=== PATIENT | female | born 1950 | race Caucasian/White ===

== ENCOUNTER → 2024-02-01 08:35 | Outpatient (REF) | payer MEDICARE, OTHER, SELFPAY ==
[2024-02-01 09:50] LABS: % Basophils 1.3 % (0-2); % Eosinophils 6.4 % (0-6); % Immature Granulocytes 0.3 % (0-0.5); % Lymphocytes 30.6 % (20.5-51.1); % Monocytes 9.5 % (1.7-9.3); % Neutrophils 51.9 % (42.2-75.2); Absolute Basophils 0.1 10^3/uL (0-0.2); Absolute Eosinophils 0.4 10^3/uL (0-0.7); Absolute Lymphocytes 1.9 10^3/uL (1.2-3.4); Absolute Monocytes 0.6 10^3/uL (0.1-0.6); Absolute Neutrophils 3.2 10^3/uL (1.4-6.5); Hematocrit 43.3 % (37.0-47.0); Hemoglobin 15.6 g/dL (12.0-16.0); Mean Corpuscular Hgb 31.1 pg (27.0-31.0); Mean Corpuscular Volume 86.4 fL (81.0-99.0); Mean Platelet Volume 11.5 fL (7.4-10.4); Nucleated Red Blood Cells % 0 %; Platelet Count 233 10^3/uL (130-400); Red Blood Cell Count 5.01 10^6/uL (4.20-5.40); Red Cell Dist. Width 12.5 % (11.5-14.5); White Blood Cell Count 6.1 10^3/uL (4.8-10.8)
[2024-02-01 11:19] LABS: ALT (SGPT) 16 U/L (0-35); AST (SGOT) 27 U/L (14-36); Albumin 4.6 g/dl (3.5-5.0); Alkaline Phosphatase 63 U/L (38-126); Blood Urea Nitrogen 15 mg/dl (7-17); Calcium 9.9 mg/dl (8.4-10.2); Carbon Dioxide 25 mmol/L (22-30); Chloride 103 mmol/L (98-107); Glucose 86 mg/dl (70-99); HDL Cholesterol 57 mg/dl; LDL Cholesterol, Calculated 113 mg/dl; Potassium 4.9 mmol/L (3.5-5.1); Sodium 139 mmol/L (135-145); Total Bilirubin 0.7 mg/dl (0.2-1.3); Total Cholesterol 187 mg/dl (50-199); Total Protein 7.2 g/dl (6.3-8.2); Triglyceride 85 mg/dl (10-149); Very Low Density Lipoprotein 17 mg/dl (0-30); eGFR > 60.00
[2024-02-01 11:51] LABS: TSH Reflex To Free T4 2.89 uIU/ml (0.47-4.68)
== END ==
LOC: REG 08:35
PROVIDERS: ATTENDING PHYSICIAN Family Medicine
DX: I48.0 Paroxysmal atrial fibrillation (principal); E87.1 Hypo-osmolality and hyponatremia; K21.9 Gastro-esophageal reflux disease without esophagitis; I10 Essential (primary) hypertension; R55 Syncope and collapse
CPT/HCPCS: 36415; 80053; 80061; 84443; 85025

== ENCOUNTER → 2024-07-11 10:43 | Outpatient (REF) | payer MEDICARE, OTHER, SELFPAY | LOC: WDC 10:43 | PROVIDERS: ATTENDING PHYSICIAN Family Medicine | DX: Z12.31 Encounter for screening mammogram for malignant neoplasm of breast (principal) | CPT/HCPCS: 77063; 77067 ==

== ENCOUNTER 2024-09-24 20:17 | Emergency (ER) | payer MEDICARE, OTHER, SELFPAY ==
[2024-09-24 20:25] VITALS: BP 164/80
[2024-09-24 20:45] LABS: % Basophils 0.9 % (0-2); % Eosinophils 4.3 % (0-6); % Immature Granulocytes 0.4 % (0-0.5); % Lymphocytes 33.1 % (20.5-51.1); % Monocytes 8.7 % (1.7-9.3); % Neutrophils 52.6 % (42.2-75.2); Absolute Basophils 0.1 10^3/uL (0-0.2); Absolute Eosinophils 0.3 10^3/uL (0-0.7); Absolute Lymphocytes 2.6 10^3/uL (1.2-3.4); Absolute Monocytes 0.7 10^3/uL (0.1-0.6); Absolute Neutrophils 4.2 10^3/uL (1.4-6.5); Hematocrit 42.2 % (37.0-47.0); Hemoglobin 14.8 g/dL (12.0-16.0); Mean Corp Hgb Conc. 35.1 g/dL (33.0-37.0); Mean Corpuscular Hgb 30.3 pg (27.0-31.0); Mean Corpuscular Volume 86.5 fL (81.0-99.0); Mean Platelet Volume 10.3 fL (7.4-10.4); Nucleated Red Blood Cells % 0 %; Platelet Count 271 10^3/uL (130-400); Red Blood Cell Count 4.88 10^6/uL (4.20-5.40); Red Cell Dist. Width 12.6 % (11.5-14.5)
[2024-09-24 20:59] VITALS: BMI 24.3
[2024-09-24 20:59] LABS: ALT (SGPT) 23 U/L (0-35); AST (SGOT) 28 U/L (14-36); Albumin 4.6 g/dl (3.5-5.0); Alkaline Phosphatase 48 U/L (38-126); Blood Urea Nitrogen 16 mg/dl (7-17); Calcium 9.3 mg/dl (8.4-10.2); Carbon Dioxide 26 mmol/L (22-30); Chloride 100 mmol/L (98-107); Glucose 123 mg/dl (70-99); Potassium 4.3 mmol/L (3.5-5.1); Sodium 137 mmol/L (135-145); Total Bilirubin 0.2 mg/dl (0.2-1.3); eGFR > 60.00
--- NOTE | 2024-09-24 20:59 | ED.GENMED ---
History of Present Illness
General
Chief Complaint: Chest Pain
Source: patient
Exam Limitations: none
Time Seen by Provider: 09/24/24 20:40
History of Present Illness
History of Present Illness:
This is a 74 year old female that comes in with c/o chest pain. 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 State that she got this pressure in her chest all of a sudden. States that she felt SOB and she felt like
she was going to pass out. States that it was not a pain. States that it was a tightness. States that this lasted less then 10 min. Denies any discomfort at this time. Denies any fever, chills, abd pain, nausea, vomiting, diarrhea, headache,
dizziness, urinary burning.
Past History
Past History
ED Past Medical History: Arrthythmia (Atrial fib), GERD and Other (Near syncope, syncope, PNA, )
ED Past Surgical History: Cardiac (Pacemaker) and Cholecystectomy
Social History
Tobacco: Non-smoker
Alcohol: Occasional
Personal:
Living: alone
Review of Systems
Review of Systems
All Other Systems: ROS reviewed and negative except as documented in HPI and ROS
Constitutional: Reports no symptoms; Denies fever or chills
EENT: Reports no symptoms
Respiratory: Reports trouble breathing; Denies cough
Cardiac: Reports chest pain
ABD/GI: Reports no symptoms; Denies abdominal pain, nausea, vomiting or diarrhea
: Denies dysuria, frequency or urgency
Musculoskeletal: Reports no symptoms
Skin: Reports no symptoms
Neurological: Reports no symptoms; Denies dizzy or headache
Psychiatric: Reports no symptoms
Phy Exam
General Physical Exam
General Presentation: well appearing and no apparent distress
General age: appears stated age
General Skin: warm and dry
General Habitus: elderly
General Mental: alert and anxious
General Hydration: appears well hydrated
ENT Exam
ENT Exam: TM's normal, pharynx normal and neck supple
Eye Exam
Eye Exam: EOMI
Cardiovascular Exam
Cardiovascular Exam: regular rate/rhythm, no edema, no murmur and normal peripheral pulses
Pulmonary Exam
Pulmonary Exam: lungs clear, no respiratory distress, no rales, chest non tender, no crackles, no rhonchi, no wheezing and no cough
Gastrointestinal Exam
Gastrointestinal Exam: normal bowel sounds, non tender, soft, no organomegaly, no pulsatile mass and non distended
Musculoskeletal Exam
Musculoskeletal Exam: full ROM and no edema
Skin Exam
Skin Exam: normal color, warm/dry, no rash and no petechia
Psychiatric Exam
Psychiatric Exam: normal mood/affect
Scores
Heart Score for Chest Pain Patients
STEMI patient?: No
History: Slightly or Non-Suspicious
ECG: Normal
Age: >/= 65 years
Risk Factors: 1 or 2 Risk Factors
Troponin: </= Normal Limit
Heart Score for Chest Pain Patients: 3
Heart Score Risk: 2.5% MACE over next 6 weeks
Course
Orders/Labs/Results
Orders:
Orders
09/24/24 20:18
ECG [Electrocardiogram (*1)] Urgent
Reason for Study: Chest Pain
EKG- Treatment ONCE
09/24/24 20:33
Cardiac Monitoring- Treatment ONCE
IV Insert/Care/Rem.- Treatment PRN
CR Chest - 2 Views Urgent
Comment:
Reason For Exam: respiratory distress
O2 Therapy [RESP] Urgent
Titrate/Wean O2 to maintain O2 sat greater than (%): 93
Special Instructions: TO MAINTAIN CONTINUOUS O2 SATS >/= 93%
Pulse Ox/cont/shift [RESP] Urgent
Quantity: 1
Special Instructions: continuous pulse ox
09/24/24 20:38
Complete Blood Count/With Diff Urgent
Comprehensive Metabolic Panel Urgent
NT-proBNP Urgent
Troponin I Urgent
09/24/24 21:04
Pantoprazole [Protonix IV] 40 mg IV NOW STA
09/24/24 23:20
EKG- Treatment ONCE
09/24/24 23:30
Electrocardiogram (*1) Urgent
Reason for Study: Chest Pain
Other Reason for Exam: repeat
09/24/24 23:44
Troponin I Urgent
Abnormal Lab Results
09/24/24
20:38
Absolute Monos (auto) 0.7 H 10^3/uL
(0.1-0.6)
Glucose 123 H mg/dl
(70-99)
09/24/24 20:38
09/24/24 20:38
glucose nonfasting. Troponin <0.012, Pro-BNP 37.1
Troponin <0.012
Vital Signs
Initial and Last Documented VS:
Initial Vital Signs
Temp Pulse Resp BP Pulse Ox
97.9 F 100 24 164/80 100
09/24/24 20:25 09/24/24 20:25 09/24/24 20:25 09/24/24 20:25 09/24/24 20:25
Last Documented Vital Signs
Temp Pulse Resp BP Pulse Ox
97.9 F 90 14 143/67 97
09/24/24 20:25 09/25/24 00:17 09/25/24 00:17 09/25/24 00:00 09/25/24 00:17
MDM/Problems Addressed
Differential Diagnosis Includes:
coronary syndrome. GERD
MDM/Problems Addressed:
This is a 74 year old female that comes in with c/o chest discomfort that only lasted less then 10 min. states that it was a tightness.
Will check labs, Chest x-ray and ECG.
repeat ECG: rate 83, NSR, Normal axis. Normal QRS, Negative for ischemia.
Back into see patient. Explained that her Troponin was also negative. Chest X-ray is normal. This may have been due to Reflux or a gas bubble that caused this fleeting pain. Patient to follow up with the Family doctor an call her supervisor whipped topping for
further evaluation. Patient to return with increased or changing pain, or any other concerns.
Chronic conditions affecting care:
NA
Acute Exacerbation and/or Progression of Chronic Illness:
NA
*Radiology
Radiology exam reviewed: radiology read reviewed (Chest-No acute cardiopulmonary process. )
*Pulse Oximetry
Patient hypoxic: no
*EKG
Interpreted by ED Provider?: Yes
Heart Rate: 97
Rate: normal
Rhythm: sinus
[place]: normal axis
Interval: normal interval
QRS Pattern: normal QRS
Ischemia: no ischemia
*Manager Payer Interpretation
Rate: normal
Heart Rate: 91
Rhythm: sinus
*Critical Care Note
Total Time (30-74mins, 75-104mins- exclusive of procedures): Not Applicable
ED Attending Note
-
Portions of this chart may have been created with voice recognition software.� Occasional wrong word or��sound alike� substitutions may have occurred due to the inherent limitations of voice recognition software.
Discharge Plan
Departure
Patient Disposition: Home (Routine Discharge)
Date of Disposition: 09/25/24
Time of Disposition: 00:50
Patient with high blood pressure during this ER visit?: Yes
Condition: Good
Covid-19: Not Applicable
Discharge Problem:
Chest pain
Instructions: Chest Pain PCP Follow Up, BLOOD PRESSURE
Prescriptions:
No Action
inulin-chromium picolinate [Fiber Select Gummies] 1 EACH tablet,chewable
2 tab PO DAILY
multivitamin 1 EACH tablet
1 ea PO BID
ascorbic acid (vitamin C) [Vitamin C] 500 MG tablet
1,000 mg PO QPM
esomeprazole magnesium [Nexium] 20 MG capsule,delayed release(DR/EC)
20 mg PO DAILY
calcium-vitamin D3-vitamin K [Citracal-D3 Soft Chew] 1 EACH tablet,chewable
2 ea PO BID
Osteo Bi-Flex + Vitamin D
1 tab PO BID
cephalexin 500 MG capsule
500 mg PO Q8H Qty: 3 0RF
Rx Instructions:
First dose due at 2pm today
apixaban [Eliquis] 5 MG tablet
5 mg PO BID Qty: 1 0RF
Rx Instructions:
Start Weds 3/10 in PM
Referrals:
Haleigh Hedrick MD [Family Provider] - Follow up in 2-3 days
Activity Restrictions/Additional Instructions:
As discussed, your blood work is normal along with Both Troponin. Your chest x-ray is normal. Please follow up with your family doctor and call your Assembler Truck Trailer for further evaluation. IF YOU HAVE INCREASED OR CHANGING PAIN OR YOU HAVE ANY OTHER
CONCERNS PLEASE RETURN TO THE EMERGENCY ROOM.
Interventions
Interventions:
*Risk Screen - Suicide Last Done: 09/24/24 20:25
*General Assessment Last Done: 09/24/24 20:25
*Neglect/Abuse Screening Last Done: 09/24/24 20:25
ED- Fall Risk Assessment Last Done: 09/24/24 20:25
*ED COVID-19 Vaccine History Last Done: 09/24/24 20:25
ED- Cardiac Assessment Last Done: 09/24/24 21:00
Discharge Date and Time
Print Language: CENTRAL AFRICAN
[2024-09-24 21:01] VITALS: BP 142/55
[2024-09-24] MEDS: PROTONIX IV 40 MG IV (21:09)
[2024-09-24 21:11] LABS: NT-proBNP 37.1 pg/ml; Troponin I < 0.012 ng/ml
[2024-09-24 23:14] VITALS: BP 147/61
[2024-09-25] VITALS: BP 143/67
[2024-09-25 00:31] LABS: Troponin I < 0.012 ng/ml
[2024-09-25 00:55] VITALS: BP 157/68
[2024-09-25 01:00] VITALS: BP 157/68
== END 2024-09-25 01:00 | disposition home or self-care (01) ==
LOC: EMR 20:17
PROVIDERS: Clinical Nurse Specialist Family Health; Emergency Medicine; EMERGENCY PHYSICIAN Student in an Organized Health Care Education/Training Program; FAMILY PHYSICIAN Family Medicine
DX: R07.89 Other chest pain (principal); I48.91 Unspecified atrial fibrillation; K21.9 Gastro-esophageal reflux disease without esophagitis; Z90.49 Acquired absence of other specified parts of digestive tract; Z95.0 Presence of cardiac pacemaker
CPT/HCPCS: 99283; 96374; 71046; 80053; 83880; 84484; 85025; 93005

== ENCOUNTER → 2024-10-03 10:52 | Outpatient (REF) | payer MEDICARE, OTHER, SELFPAY | LOC: DHCBC/DCA 10:52 | PROVIDERS: ATTENDING PHYSICIAN Internal Medicine Cardiovascular Disease; FAMILY PHYSICIAN Family Medicine | DX: R07.89 Other chest pain (principal); R06.02 Shortness of breath; I48.0 Paroxysmal atrial fibrillation; R00.1 Bradycardia, unspecified | CPT/HCPCS: 78452; 93017; A9500; J2785 ==

== ENCOUNTER → 2025-01-30 08:58 | Outpatient (REF) | payer MEDICARE, OTHER, SELFPAY ==
[2025-01-30 09:36] LABS: % Basophils 0.9 % (0-2); % Eosinophils 3.4 % (0-6); % Immature Granulocytes 0.2 % (0-0.5); % Lymphocytes 29.5 % (20.5-51.1); % Monocytes 8.6 % (1.7-9.3); % Neutrophils 57.4 % (42.2-75.2); Absolute Basophils 0.1 10^3/uL (0-0.2); Absolute Eosinophils 0.2 10^3/uL (0-0.7); Absolute Lymphocytes 1.7 10^3/uL (1.2-3.4); Absolute Monocytes 0.5 10^3/uL (0.1-0.6); Absolute Neutrophils 3.2 10^3/uL (1.4-6.5); Hematocrit 46.3 % (37.0-47.0); Hemoglobin 16.6 g/dL (12.0-16.0); Mean Corp Hgb Conc. 35.9 g/dL (33.0-37.0); Mean Corpuscular Hgb 31.3 pg (27.0-31.0); Mean Corpuscular Volume 87.2 fL (81.0-99.0); Mean Platelet Volume 11.2 fL (7.4-10.4); Nucleated Red Blood Cells % 0 %; Platelet Count 238 10^3/uL (130-400); Red Blood Cell Count 5.31 10^6/uL (4.20-5.40); Red Cell Dist. Width 12.4 % (11.5-14.5); White Blood Cell Count 5.6 10^3/uL (4.8-10.8)
[2025-01-30 10:12] LABS: ALT (SGPT) 19 U/L (0-35); AST (SGOT) 25 U/L (14-36); Albumin 4.7 g/dl (3.5-5.0); Alkaline Phosphatase 61 U/L (38-126); Blood Urea Nitrogen 14 mg/dl (7-17); Calcium 10.2 mg/dl (8.4-10.2); Carbon Dioxide 28 mmol/L (22-30); Chloride 102 mmol/L (98-107); Glucose 95 mg/dl (70-99); HDL Cholesterol 60 mg/dl; LDL Cholesterol, Calculated 128 mg/dl; Potassium 4.3 mmol/L (3.5-5.1); Sodium 141 mmol/L (135-145); Total Bilirubin 0.7 mg/dl (0.2-1.3); Total Cholesterol 203 mg/dl (50-199); Total Protein 7.7 g/dl (6.3-8.2); Triglyceride 79 mg/dl (10-149); Very Low Density Lipoprotein 15 mg/dl (0-30); eGFR > 60.00
[2025-01-30 10:37] LABS: TSH Reflex To Free T4 2.82 uIU/ml (0.47-4.68)
== END ==
LOC: REG 08:58
PROVIDERS: ATTENDING PHYSICIAN Family Medicine
DX: R00.1 Bradycardia, unspecified (principal); I48.0 Paroxysmal atrial fibrillation; E78.1 Pure hyperglyceridemia; I10 Essential (primary) hypertension; E87.1 Hypo-osmolality and hyponatremia
CPT/HCPCS: 36415; 80053; 80061; 84443; 85025

== ENCOUNTER 2025-03-03 14:46 | Emergency (ER) | payer MEDICARE, OTHER, SELFPAY ==
[2025-03-03] VITALS (7 sets, daily range): BP systolic 126–190; BP diastolic 56–101
[2025-03-03 15:20] LABS: % Basophils 0.5 % (0-2); % Eosinophils 0.6 % (0-6); % Immature Granulocytes 0.2 % (0-0.5); % Lymphocytes 14.1 % (20.5-51.1); % Monocytes 7.6 % (1.7-9.3); Absolute Basophils 0.1 10^3/uL (0-0.2); Absolute Eosinophils 0.1 10^3/uL (0-0.7); Absolute Lymphocytes 1.3 10^3/uL (1.2-3.4); Absolute Monocytes 0.7 10^3/uL (0.1-0.6); Absolute Neutrophils 7.2 10^3/uL (1.4-6.5); Hematocrit 42.7 % (37.0-47.0); Hemoglobin 15.5 g/dL (12.0-16.0); Mean Corp Hgb Conc. 36.3 g/dL (33.0-37.0); Mean Corpuscular Hgb 31.4 pg (27.0-31.0); Mean Corpuscular Volume 86.4 fL (81.0-99.0); Mean Platelet Volume 11.3 fL (7.4-10.4); Nucleated Red Blood Cells % 0 %; Platelet Count 248 10^3/uL (130-400); Red Blood Cell Count 4.94 10^6/uL (4.20-5.40); Red Cell Dist. Width 12.3 % (11.5-14.5); White Blood Cell Count 9.3 10^3/uL (4.8-10.8)
[2025-03-03 15:37] LABS: ALT (SGPT) 16 U/L (0-35); AST (SGOT) 21 U/L (14-36); Albumin 4.7 g/dl (3.5-5.0); Alkaline Phosphatase 67 U/L (38-126); Blood Urea Nitrogen 12 mg/dl (7-17); Carbon Dioxide 25 mmol/L (22-30); Chloride 107 mmol/L (98-107); Glucose 114 mg/dl (70-99); Sodium 140 mmol/L (135-145); Total Bilirubin 0.5 mg/dl (0.2-1.3); Total Protein 7.5 g/dl (6.3-8.2); eGFR > 60.00
[2025-03-03 15:43] LABS: Troponin I < 0.012 ng/ml
--- NOTE | 2025-03-03 15:58 | ED.GENMED ---
History of Present Illness
General
Chief Complaint: Chest Pain
Source: patient
Exam Limitations: none
Time Seen by Provider: 03/03/25 15:45
History of Present Illness
History of Present Illness:
See MDM
Past History
Past History
ED Past Medical History: Arrthythmia (Atrial fib), GERD and Other (Near syncope, syncope, PNA, )
ED Past Surgical History: Cardiac (Pacemaker) and Cholecystectomy
Social History
Tobacco: Non-smoker
Alcohol: Occasional
Personal:
Living: alone
Phy Exam
Physical Exam
Physical Exam:
See MDM
Scores
Heart Score for Chest Pain Patients
STEMI patient?: No
History: Slightly or Non-Suspicious
ECG: Nonspecific Repolarization
Age: >/= 65 years
Risk Factors: 1 or 2 Risk Factors
Troponin: </= Normal Limit
Heart Score for Chest Pain Patients: 4
Heart Score Risk: 20.3% MACE over next 6 weeks
Course
Orders/Labs/Results
Orders:
Orders
03/03/25 14:47
EKG [Electrocardiogram (*1)] Urgent
Reason for Study: Chest Pain
EKG- Treatment ONCE
03/03/25 14:57
Cardiac Monitoring- Treatment ONCE
IV Insert/Care/Rem.- Treatment PRN
O2 Therapy [RESP] Urgent
Titrate/Wean O2 to maintain O2 sat greater than (%): 90
Special Instructions: Maintain sats >/=90%
Pulse Ox/spot Check [RESP] Urgent
Quantity: 1
Special Instructions: ON ROOM AIR
03/03/25 15:10
Complete Blood Count/With Diff Urgent
Comprehensive Metabolic Panel Urgent
Troponin I Urgent
03/03/25 15:56
0.9% Sodium Chloride 1000 ml [Nss] 1,000 ml IV BOLUS
Diltiazem HCl [Cardizem] 20 mg IV NOW STA
CR Chest Portable - 1 View Urgent
Comment:
Reason For Exam: central chest pain
Reason Study Needs to be Portable: Patient Unstable
03/03/25 17:27
Propofol [Diprivan] 20 ml .ROUTE .STK-MED
03/03/25 17:41
Electrocardiogram (*1) Urgent
Reason for Study: Other
Other Reason for Exam: rhythm change
EKG- Treatment ONCE
Abnormal Lab Results
03/03/25
15:10
MCH 31.4 H pg
(27.0-31.0)
MPV 11.3 H fL
(7.4-10.4)
Absolute Neuts (auto) 7.2 H 10^3/uL
(1.4-6.5)
Absolute Monos (auto) 0.7 H 10^3/uL
(0.1-0.6)
Neutrophils % 77.0 H %
(42.2-75.2)
Lymphocytes % 14.1 L %
(20.5-51.1)
Glucose 114 H mg/dl
(70-99)
03/03/25 15:10
03/03/25 15:10
Vital Signs
Initial and Last Documented VS:
Initial Vital Signs
Temp Pulse Resp BP Pulse Ox
97.9 F 125 22 190/101 99
03/03/25 14:53 03/03/25 14:53 03/03/25 14:53 03/03/25 14:53 03/03/25 14:53
Last Documented Vital Signs
Temp Pulse Resp BP Pulse Ox
97.9 F 84 19 126/66 98
03/03/25 14:53 03/03/25 17:45 03/03/25 17:45 03/03/25 17:40 03/03/25 17:45
MDM/Problems Addressed
Differential Diagnosis Includes:
HPI and MDM Narrative:
74-year-old female presenting for evaluation of central chest discomfort. Patient has history of poorly controlled osteoporosis. Patient has developed random rib fractures in the past because of this. Patient states this feels like another rib
fracture. However, patient with RVR. Patient does have a history of A-fib and claims compliance with Eliquis. She states that she has never been in A-fib for this long.
Blood work was done prior to my assessment showing no clinically significant abnormalities.
Will give dose of IV Cardizem and attempt to chemically cardiovert. If unsuccessful, will consider synchronized cardioversion
Physical exam
General: Well appearing and non-toxic
HEENT: protecting airway
Neck: appears supple
CV: No evidence of cyanosis. Tachycardic and irregular
Resp: No accessory muscle use
Abd: Non-distended
Extremities: No deformities
Neuro: alert
Psych: Mildly anxious
Skin: Intact
Problems Addressed including Acute and Chronic Conditions affecting care:
1. A-fib with RVR
Acuity: acute
Prognosis: stable
Details: Will give IV Cardizem attempt to chemically cardiovert
2. Chest pain
Acuity: acute
Prognosis: stable
Details: Likely in the setting of A-fib. Troponin negative. Will obtain chest x-ray given prior history of rib fractures
Updates
IV Cardizem seem to work but patient was going back to the 120s in A-fib. At that point, patient signed consent for sedation and cardioversion. Just before moderate sedation was started, patient broke to sinus rhythm. Comfortable going home.
Discussed following up with cardiology
Differential Diagnosis (but not limited to): A-fib, ACS, rib fractures
Testing considered: D-dimer but she is anticoagulated
Drug therapy (if applicable): OTC meds, please see d/c instruction regarding Rx drugs
Amount and/or Complexity of Data Reviewed
Clinical info obtained from: Patient
External data reviewed: N/A
Labs I independently reviewed (but not limited to): Troponin negative
Radiology: X-ray independently reviewed: Chest x-ray negative for widened mediastinum or rib fractures
Pulse Ox: not hypoxic
EKG independently reviewed: A-fib with RVR, normal axis, no STEMI
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
Critical Care: The high probability of a clinically significant, sudden or life threatening deterioration of the cardiovascular system(s) required my full and direct attention, intervention and personal management. The aggregate critical care time
was 33 minutes. This time is in addition to time spent performing reported procedures but includes the following:
[x] Data Review and interpretation
[x] Patient assessment and monitoring of vital signs
[x] Documentation
[x] Medication orders and management
Risk of Complication:
Social Determinants of health: Good social support
Discussed with other providers: N/A
Escalation of Care includes Admit/Obs: After being observed in the Emergency Department, pt stable for discharge.
Occasional wrong word or 'sound a like' substitutions may have occurred due to the inherent limitations of voice recognition software. Read the chart carefully and recognize, using context, where substitutions have occurred.
*Critical Care Note
Total Time (30-74mins, 75-104mins- exclusive of procedures): 33 min
ED Attending Note
-
Portions of this chart may have been created with voice recognition software.� Occasional wrong word or��sound alike� substitutions may have occurred due to the inherent limitations of voice recognition software.
Discharge Plan
Departure
Patient Disposition: Home (Routine Discharge)
Date of Disposition: 03/03/25
Time of Disposition: 18:01
Patient with high blood pressure during this ER visit?: No
Discharge Problem:
A-fib
Prescriptions:
No Action
inulin-chromium picolinate [Fiber Select Gummies] 1 EACH tablet,chewable
2 tab PO DAILY
multivitamin 1 EACH tablet
1 ea PO BID
ascorbic acid (vitamin C) [Vitamin C] 500 MG tablet
1,000 mg PO QPM
esomeprazole magnesium [Nexium] 20 MG capsule,delayed release(DR/EC)
20 mg PO DAILY
calcium-vitamin D3-vitamin K [Citracal-D3 Soft Chew] 1 EACH tablet,chewable
2 ea PO BID
Osteo Bi-Flex + Vitamin D
1 tab PO BID
cephalexin 500 MG capsule
500 mg PO Q8H Qty: 3 0RF
Rx Instructions:
First dose due at 2pm today
apixaban [Eliquis] 5 MG tablet
5 mg PO BID Qty: 1 0RF
Rx Instructions:
Start Weds 3/10 in PM
Referrals:
Haleigh Hedrick MD [Family Provider, Family Practice]
Activity Restrictions/Additional Instructions:
Please return for any worsening symptoms.
You may return at any time if you have further concerns.
Please follow up with your sorority mother at the first available appointment. I am worried that your A-fib is starting to worsen.
Thank you for choosing [facility].
Interventions
Interventions:
*General Assessment Last Done: 03/03/25 14:53
*Neglect/Abuse Screening Last Done: 03/03/25 14:53
ED- Cardiac Assessment Last Done: 03/03/25 16:00
Discharge Date and Time
Print Language: POLISH
[2025-03-03] MEDS: NSS 1000 IV (16:02)
[2025-03-03] MEDS: CARDIZEM 20 MG IV (16:02)
[2025-03-03] MEDS: MAALOX 50 PO (18:05)
== END 2025-03-03 18:12 | disposition home or self-care (01) ==
LOC: EMR 14:46
PROVIDERS: Emergency Medicine; EMERGENCY PHYSICIAN Student in an Organized Health Care Education/Training Program; FAMILY PHYSICIAN Family Medicine
DX: R07.89 Other chest pain (principal); I48.91 Unspecified atrial fibrillation; M81.0 Age-related osteoporosis without current pathological fracture; K21.9 Gastro-esophageal reflux disease without esophagitis; Z79.01 Long term (current) use of anticoagulants; Z95.0 Presence of cardiac pacemaker; Z87.01 Personal history of pneumonia (recurrent); Z90.49 Acquired absence of other specified parts of digestive tract
CPT/HCPCS: 99291; 96374; 96361; 71045; 80053; 84484; 85025; 93005

== ENCOUNTER 2025-03-06 11:06 | Inpatient (IN) | payer MEDICARE, OTHER, SELFPAY ==
[2025-03-05] VITALS (7 sets, daily range): BP systolic 122–163; BP diastolic 60–97; BMI 24.6; BMI 24.4
[2025-03-05 17:21] LABS: % Basophils 0.7 % (0-2); % Eosinophils 0.9 % (0-6); % Immature Granulocytes 0.2 % (0-0.5); % Lymphocytes 20.3 % (20.5-51.1); % Monocytes 7.5 % (1.7-9.3); % Neutrophils 70.4 % (42.2-75.2); Absolute Basophils 0.1 10^3/uL (0-0.2); Absolute Eosinophils 0.1 10^3/uL (0-0.7); Absolute Lymphocytes 1.9 10^3/uL (1.2-3.4); Absolute Monocytes 0.7 10^3/uL (0.1-0.6); Absolute Neutrophils 6.4 10^3/uL (1.4-6.5); Hematocrit 44.9 % (37.0-47.0); Mean Corp Hgb Conc. 35.6 g/dL (33.0-37.0); Mean Corpuscular Hgb 30.8 pg (27.0-31.0); Mean Corpuscular Volume 86.3 fL (81.0-99.0); Mean Platelet Volume 11.5 fL (7.4-10.4); Nucleated Red Blood Cells % 0 %; Platelet Count 264 10^3/uL (130-400); Red Cell Dist. Width 12.2 % (11.5-14.5); White Blood Cell Count 9.2 10^3/uL (4.8-10.8)
[2025-03-05 17:28] LABS: ALT (SGPT) 17 U/L (0-35); AST (SGOT) 24 U/L (14-36); Albumin 4.9 g/dl (3.5-5.0); Alkaline Phosphatase 58 U/L (38-126); Blood Urea Nitrogen 17 mg/dl (7-17); Calcium 9.7 mg/dl (8.4-10.2); Carbon Dioxide 23 mmol/L (22-30); Chloride 107 mmol/L (98-107); Glucose 107 mg/dl (70-99); Potassium 4.4 mmol/L (3.5-5.1); Sodium 139 mmol/L (135-145); Total Bilirubin 0.4 mg/dl (0.2-1.3); eGFR > 60.00
[2025-03-05 17:40] LABS: Troponin I < 0.012 ng/ml
--- NOTE | 2025-03-05 19:25 | ED.GENMED ---
History of Present Illness
General
Chief Complaint: Chest Pain
Source: patient, records and previous hospital records
Exam Limitations: none
Time Seen by Provider: 03/05/25 18:54
Nursing documentation reviewed up to this point in time: agreed with
History of Present Illness
History of Present Illness:
Patient very pleasant 74-year-old female with PAF, seen in the ER few days ago with chest pain associated with rapid rates apparently converted after Cardizem did not require cardioversion, followed up with her audio experience expert today again had rapid
rates with some chest pain, referred to the ER for evaluation and admission for rate control strategies possibly ablation possibly an ischemic evaluation she does have a history of reflux, had been on a PPI now on it twice daily possibly as needed,
does give a history that she does get some pain with fast heart rate also without also shortness of breath, no fever no hemoptysis said mild cough no leg edema
Patient had a chest x-ray and labs 2 days ago
Past History
Past History
ED Past Medical History: Arrthythmia (Atrial fib), GERD and Other (Near syncope, syncope, PNA, ); Negative CAD
ED Past Surgical History: Cardiac (Pacemaker) and Cholecystectomy
Social History
Tobacco: Non-smoker
Alcohol: Occasional
Drug: None
Personal:
Living: alone
Employment: Retired
Phy Exam
Physical Exam
Physical Exam:
Physical Exam
General: no apparent distress, not acutely ill
Neck: No JVD
Heart: Regular
Lungs: No crackles
Abdomen: Nontender
Neuro: alert and oriented. no focal neurological deficits
Skin: no rash
Psychiatric: well kept. interactive and cooperative
Extremities: no edema. no calf tenderness.
Scores
Heart Score for Chest Pain Patients
STEMI patient?: No
History: Slightly or Non-Suspicious
ECG: Nonspecific Repolarization
Age: >/= 65 years
Risk Factors: 1 or 2 Risk Factors
Troponin: </= Normal Limit
Heart Score for Chest Pain Patients: 4
Heart Score Risk: 20.3% MACE over next 6 weeks
Course
Orders/Labs/Results
Orders:
Orders
03/05/25 16:42
Electrocardiogram (*1) Urgent
Reason for Study: Chest Pain
03/05/25 16:43
EKG- Treatment ONCE
03/05/25 17:07
Complete Blood Count/With Diff Urgent
Comprehensive Metabolic Panel Urgent
Troponin I Urgent
Abnormal Lab Results
03/05/25
17:07
MPV 11.5 H fL
(7.4-10.4)
Absolute Monos (auto) 0.7 H 10^3/uL
(0.1-0.6)
Lymphocytes % 20.3 L %
(20.5-51.1)
Glucose 107 H mg/dl
(70-99)
03/05/25 17:07
03/05/25 17:07
Vital Signs
Initial and Last Documented VS:
Initial Vital Signs
Temp Pulse Resp BP Pulse Ox
98.3 F 118 18 163/97 99
03/05/25 16:49 03/05/25 16:49 03/05/25 16:49 03/05/25 16:49 03/05/25 16:49
Last Documented Vital Signs
Temp Pulse Resp BP Pulse Ox
98.3 F 89 19 153/83 100
03/05/25 16:49 03/05/25 17:55 03/05/25 17:55 03/05/25 17:54 03/05/25 17:55
MDM/Problems Addressed
Differential Diagnosis Includes:
Symptomatic AF ischemia reflux heart failure electrolyte abnormality thyroid
MDM/Problems Addressed:
Chest pain tachycardia
Chronic conditions affecting care: Arrhythmia
Acute Exacerbation and/or Progression of Chronic Illness: Arrhythmia
*Pulse Oximetry
Patient hypoxic: no
Comment: 99
*EKG
Interpreted by ED Provider?: Yes
Comparison EKG: changes noted
Heart Rate: 140
Rate: tachycardiac
Rhythm: a-fib
Ischemia: non-specific ST changes
*Purchasing Director Interpretation
Rate: tachycardiac
Interpretation: abnormal
Heart Rate: 140
Rhythm: a-fib
*Critical Care Note
Total Time (30-74mins, 75-104mins- exclusive of procedures): Not Applicable
Data Reviewed
Review of Other/Old Records Reveals: Labs and Records
Source: patient and records
Prescriptions/Medications Considered But Not Given:
Unfractionated heparin
Further Testing Considered But Not Given:
Echo
Update Note
Update Note:
Update, patient with recurrent persistent symptoms, most consistent with rapid heart rates, typically does not have a lot of problem with rapid rates, also has reflux, I did receive a note from her outpatient audio experience expert earlier today plan was to
rule her out, admit to the hospital,
ED Attending Note
-
Portions of this chart may have been created with voice recognition software.� Occasional wrong word or��sound alike� substitutions may have occurred due to the inherent limitations of voice recognition software.
Discharge Plan
Departure
Patient Disposition: Admit
Date of Disposition: 03/05/25
Time of Disposition: 19:34
Admit to: Telemetry
Presentation/result/management discussed w/ accepting MD/DO: Hospitalist
Patient with high blood pressure during this ER visit?: No
Condition: Good
Discharge Problem:
Chest pain, Atrial fibrillation with RVR
Prescriptions:
No Action
inulin-chromium picolinate [Fiber Select Gummies] 1 EACH tablet,chewable
2 tab PO DAILY
multivitamin 1 EACH tablet
1 ea PO BID
ascorbic acid (vitamin C) [Vitamin C] 500 MG tablet
1,000 mg PO QPM
esomeprazole magnesium [Nexium] 20 MG capsule,delayed release(DR/EC)
20 mg PO DAILY
calcium-vitamin D3-vitamin K [Citracal-D3 Soft Chew] 1 EACH tablet,chewable
2 ea PO BID
Osteo Bi-Flex + Vitamin D
1 tab PO BID
cephalexin 500 MG capsule
500 mg PO Q8H Qty: 3 0RF
Rx Instructions:
First dose due at 2pm today
apixaban [Eliquis] 5 MG tablet
5 mg PO BID Qty: 1 0RF
Rx Instructions:
Start Weds 310 in PM
Interventions
Interventions:
*Risk Screen - Suicide Last Done: 03/05/25 16:49
*General Assessment Last Done: 03/05/25 16:49
*Neglect/Abuse Screening Last Done: 03/05/25 16:49
*ED- Fall Risk Assessment Last Done: 03/05/25 17:55
*ED COVID-19 Vaccine History Last Done: 03/05/25 17:55
ED- Cardiac Assessment Last Done: 03/05/25 17:55
Discharge Date and Time
Print Language: BERMUDIAN
--- NOTE | 2025-03-05 20:01 | HPS.HSE ---
Family Physician
-
Family Physician: Haleigh Hedrick MD
Chief Complaint
-
Chest pain
History of Present Illness
This is a 74-year-old with past medical history of paroxysmal atrial fibrillation, sick sinus syndrome status post pacemaker placement in her 40s, GERD, who presents to the emergency department with intermittent episodes of chest pain over the last
2 days.
Patient was seen in the emergency department on this and found for chest discomfort. She was found to be in rapid atrial fibrillation at that time. She received a dose of Cardizem with improvement in her rate but she converted back to atrial
fibrillation. As she was about to undergo cardioversion the patient spontaneous converted to normal sinus rhythm. She stated that as soon as her rate control improved chest pain resolved.
Since then she has been having intermittent episodes of chest discomfort that she associates with rapid heart rate. She has mild nausea but no vomiting. She reports some shortness of breath with exertion. She was seen in the cardiology clinic
today and was seen to be having symptomatic atrial fibrillation with rapid ventricular rate and continued chest discomfort.
Patient denies prior history of CAD. She reports that in the past she had been on beta-andres for atrial fibrillation but was discontinued due to headaches and minimal symptoms. She has not had symptoms of uncontrolled atrial fibrillation until
recently.
In the emergency department the patient was afebrile, blood pressure was 160/80 with a pulse of 82 sinus. ECG shows atrial flutter with variable conduction at a rate of 130. No acute ischemic changes. Troponin was negative. Electrolytes were all
within normal range. BUN/creatinine were normal. CBC was also normal.
On telemetry she did appear to have nonsustained episode of slow V. tach at a rate of 130.
Medical History
Past Medical History
Past Medical History: Reports Other
Additional Past Medical History:
GERD,
near syncope,
Cholelithiasis
Sick sinus syndrome status post pacemaker placement
Atrial fibrillation (paroxysmal)
Essential tremors
Past Surgical History: Reports Other
Additional Past Surgical History:
Status post cholecystectomy
Status post pacemaker placement
Social History
Tobacco: Non-smoker
Alcohol: None
Drug: None
Personal:
Living: With Family
Family History
Family History: Not pertinent
Allergies / Home Medications
Allergies reflects when Allergies were last updated in [facility].
Home Medications with original date entered in [facility]
Allergy/Medication List:
Allergies
Allergy/AdvReac Type Severity Reaction Status Date / Time
No Known Allergies Allergy Verified 03/03/25 14:53
Home Medications
inulin-chromium picolinate 2 gram-100 mcg chewable tablet (Fiber Select Gummies) 2 tab PO DAILY 12/10/15
apixaban 5 mg tablet (Eliquis) 5 mg PO BID #1 tab 12/02/20
ascorbic acid (vitamin C) 500 mg tablet (Vitamin C) 1,000 mg PO QPM 12/02/20
calcium 500 mg-vitamin D3 1,000 unit-vitamin K 40 mcg chewable tablet (Citracal-D3 Soft Chew) 1 ea PO BID 12/02/20
esomeprazole magnesium 20 mg capsule,delayed release (Nexium) 20 mg PO Q48H 12/02/20
glucosamine-chondroitin 250 mg-200 mg tablet 1 tab PO BID ##0 12/02/20
multivitamin 1 ea PO BID 12/02/20
acetaminophen 500 mg tablet (Tylenol Extra Strength) 1,000 mg PO QIDPRN PRN MILD PAIN 03/05/25
cyanocobalamin (vitamin B-12) 1,000 mcg tablet 1,000 mcg PO DAILY 03/05/25
Review of Systems
-
Constitutional: Reports No Symptoms
EENT: Reports No Symptoms
Respiratory: Reports No Symptoms
Cardiac: Reports Chest Pain and Palpitations
Abdomen/GI: Reports No Symptoms
: Reports No Symptoms
Musculoskeletal: Reports No Symptoms
Skin: Reports No Symptoms
Neurological: Reports No Symptoms
Endocrine: Reports No Symptoms
Hematologic/Lymphatic: Reports No Symptoms
Psych: Reports No Symptoms
Physical Exam
Vital Signs
Vital Signs
Temp Pulse Resp BP Pulse Ox
98.3 F 82 25 159/89 99
03/05/25 16:49 03/05/25 19:00 03/05/25 19:00 03/05/25 19:12 03/05/25 19:12
Physical Exam
General: Well Developed, Well Nourished and No Apparent Distress
HEENT: NormoCephalic, Moist mucous membranes and Atraumatic
Respiratory: Clear
Cardiac: S1/S2 and Regular Rhythm; No Murmur or Rub
GI: Soft, Non Tender, Non Distended and Normal Bowel Sounds; No Organomegaly
Rectal: Deferred by Provider
Musculoskeletal: No Clubbing, No Cyanosis and No Edema
Skin: No Rash
Neuro: Nonfocal/grossly intact
Laboratory Results
-
03/05/25 17:07
03/05/25 17:07
Laboratory Results
Total Bilirubin 0.4 mg/dl (0.2-1.3) 03/05/25 17:07
AST 24 U/L (14-36) 03/05/25 17:07
ALT 17 U/L (0-35) 03/05/25 17:07
Alkaline Phosphatase 58 U/L (38-126) 03/05/25 17:07
Troponin I < 0.012 ng/ml 03/05/25 17:07
Data Reviewed
-
Medical Tests (Nuc Med, Echo, EKG etc): Image Personally Visualized and interpreted
Lab Data: Labs Reviewed by me
Old Records: Reviewed
Impression/Plan
-
IMPRESSION:
74-year-old with a history of sick sinus syndrome status post pacemaker, paroxysmal atrial fibrillation anticoagulation but no rate control ischemic coronary artery disease presents the emergency department with intermittent chest pain ongoing for
the last 2 days and associated with rapid atrial fibrillation. In the emergency department 2 days ago she was found to be in rapid atrial fibrillation and chest tightness with ultimately spontaneous conversion to sinus rhythm and resolution of her
chest discomfort. She was seen in follow-up clinic back cardiology today and was also again found to be in rapid atrial fibrillation and complained of some chest discomfort as well. She reports some dyspnea on exertion with that. Now back in the
emergency department she had an EKG which showed atrial flutter with 2-1 conduction at a rate of 131 but there is currently in normal sinus rhythm. Telemetry indicates episode of nonsustained ventricular tachycardia that is slow at around 130.
Suspect rate related chest discomfort and possibly some underlying coronary artery disease, unlikely acute obstruction of coronary vessel.
PLAN:
Symptomatic atrial fibrillation -currently rate controlled in sinus rhythm
- admit to telemetry observation
- will start diltiazem po for now 30 mg q 6, ideally beta blockade but patient reports headache with beta andres
- may need rhythm control
- echo in am
- continue eliquis 5 bid
Chest pain - rate related symptomatic afib. ?NSVT
- continue troponinin trending for now
- continue eliquis
- consider ischemia testing per cards
- NPO after midnight
- echo, lipid panel and a1c
DVT PPX - on apixaban
Code status - Full Code
[2025-03-05] MEDS: CARDIZEM 30 MG PO (21:36)
--- NOTE | 2025-03-05 23:09 | PTCARENOTE ---
Pt AAOx3. Pt walked from stretcher to bed. No c/o pain upon admission. Pt oriented to room, safety measures in place, call garcia within reach.
[2025-03-06] VITALS (11 sets, daily range): BP systolic 108–152; BP diastolic 43–89
[2025-03-06] MEDS: CARDIZEM 30 MG PO (04:57)
[2025-03-06 07:27] LABS: Troponin I < 0.012 ng/ml
[2025-03-06 07:45] LABS: Blood Urea Nitrogen 15 mg/dl (7-17); Calcium 9.5 mg/dl (8.4-10.2); Carbon Dioxide 26 mmol/L (22-30); Chloride 108 mmol/L (98-107); Estimated Creatinine Clearance 85 ml/min; Glucose 94 mg/dl (70-99); HDL Cholesterol 52 mg/dl; LDL Cholesterol, Calculated 101 mg/dl; Potassium 4.5 mmol/L (3.5-5.1); Sodium 142 mmol/L (135-145); Total Cholesterol 167 mg/dl (50-199); Triglyceride 73 mg/dl (10-149); Very Low Density Lipoprotein 14 mg/dl (0-30); eGFR > 60.00
--- NOTE | 2025-03-06 08:01 | W.PN.CD ---
Today's Communication / Plan
-
tele
EP consult
update echo
tSH and reflex T4
EP to see
Impression / Plan
-
74-year-old woman with a history of a pacemaker who had a previous history of A-fib noted on device checks and has been maintained on Eliquis but more recently has developed recurrent symptomatic atrial fibrillation. She had presented to the ER in
03/03/2025 with chest discomfort and was noted to have A-fib with RVR given IV Cardizem spontaneously converted back to sinus rhythm and then discharged she presented to the office yesterday with ongoing chest discomfort and also was noted to have
A-fib with RVR. Despite ongoing chest discomfort for hours troponins have remained negative. Patient placed on IV Cardizem with additional rate control.
.
Atrial fibrillation with RVR
- [id number] 2 (female and age greater than 65)
- Continue anticoagulation with Eliquis
- Patient with symptomatic atrial fibrillation. Due to symptoms she would benefit from a rhythm control strategy.
- Consider ablation alternatively antiarrhythmic therapy
- EP consult.
- TSH with reflex T4
- patient says she ad headaches with Toprol in the past this may limit use of BB
.
Chest discomfort.
- Negative troponins. I suspect that the chest discomfort is just related to atrial fibrillation.
- After additional rhythm management plan for outpatient Lexiscan stress in this patient with you as a pacemaker
.
Pacemaker Stable
Physical Exam
Vital Signs/Labs
Vital Signs
Temp Pulse Resp BP Pulse Ox
98.5 F 84 20 141/63 100
03/06/25 07:00 03/06/25 07:00 03/06/25 07:00 03/06/25 07:00 03/06/25 07:00
03/05/25 03/06/25 03/07/25
06:59 06:59 06:59
Actual Weight 72.688 kg
03/05/25 17:07
03/06/25 06:16
Triglycerides 73 mg/dl (10-149) 03/06/25 06:16
LDL Cholesterol, Calc 101 mg/dl 03/06/25 06:16
VLDL Cholesterol, Calc 14 mg/dl (0-30) 03/06/25 06:16
HDL Cholesterol 52 mg/dl 03/06/25 06:16
LAB Results
03/05/25 03/06/25
17:07 06:16
Troponin I < 0.012 < 0.012
Physical Exam
Cardiovascular: Rhythm & rate is regular
Respiratory: Respiratory effort normal
GI: Soft
Neuro/Psych: Alert
Data Reviewed
-
Date of Service: March 06, 2025
Medical Decision Making: Reviewed Test Results
EKG: Report Reviewed by me
Medical Tests (PFT, Pathology etc): Report Reviewed by me
Labs: Labs Reviewed by me
--- NOTE | 2025-03-06 08:03 | W.PN.UPDATE ---
Update Note
Progress Note Update
Recurrent atrial fibrillation and flutter.
s/p PPM
D/c Diltiazem
Start Toprol XL 25 mg BID
Start Tikosyn laoding
[2025-03-06] MEDS: CARDIZEM PO (08:30)
--- NOTE | 2025-03-06 08:38 | W.CARD.TIKOS ---
Initiate Tikosyn
-
I verify that the patient has not taken any verapamil (Isoptin/Calan), ketoconazole (Nizoral), cimetidine (Tagamet), trimethoprim (Trimpex), trimethoprim/sulfamethoxazole (Bactrim), megesterol (Megace), prochlorperazine (Compazine),
hydrochlorothiazide (HCTZ), dolutegravir (Tivicay) or any Class I or Class III anti-arrhythmic within the last three days
AND
I verify that the patient has not taken amiodarone within the last THREE months, or that the patient's amiodarone plasma concentration is <0.3 mcg/mL.
Creatinine 0.6 mg/dL (0.6-1.0) 03/06/25 06:16
Estimated Creat Clear 85 ml/min 03/06/25 06:16
Does patient have a Ventricular Conduction Abnormality: No
I have assessed the baseline QTc interval (using QT for heart rate less than 60 bpm) and deemed the patient is appropriate for Dofetilide therapy. I understand that Tikosyn is contraindicated if the QTc is >440msec (500msec in patients with
ventricular conduction abnormalities).
Baseline QTc (in msec): 451
QTc interval is greater than 440msec without conduction abnormality OR greater than 500msec with a conduction abnormality, but acceptable to proceed per Cardiology attending.
Reason for Administration with Prolonged QTc: Other Atrial Arrhythmia (PAC and PVCs)
Ordering Physician: Felisha Farris
[2025-03-06] MEDS: ELIQUIS 5 MG PO ×2 (08:45→19:47)
[2025-03-06] MEDS: PROTONIX 40 MG PO (08:45)
[2025-03-06] MEDS: VITAMIN B-12 1000 MCG PO (08:45)
[2025-03-06 08:47] LABS: Glycohemoglobin (HgbA1c) 5.1 % (4.0-5.6)
--- NOTE | 2025-03-06 09:15 | PTCARENOTE ---
Patient transferred to room 2249 for initiation of Tikosyn therapy. Report called to Mary ELIZABETH. all belongings taken at time of transfer.
[2025-03-06] MEDS: TIKOSYN 500 MCG PO ×2 (10:13→20:33)
--- NOTE | 2025-03-06 11:07 | W.PN.HOSP.TC ---
Today's Communication/Plan
-
Dofetilide loading
Assessment / Plan
Assessment / Plan
74-year-old woman with a history of A-fib on Eliquis presented with chest discomfort on 03/03/2025. She converted to sinus rhythm after Cardizem and was discharged.. She was found to be in A-fib when seen in the office and was sent to ER.
Patient awake alert
Cardiovascular system S1-S2 appreciated
Chest clear to auscultation
Abdomen soft and nontender
No pedal edema
Echo 03/06/2025-normal biventricular size and systolic function. Pacer wires in the RV. Mild MR. Moderate TR. Pulmonary artery pressure 29 mmHg. No change since 2022
# Atrial fibrillation with RVR
Converted to sinus rhythm
Continue Eliquis
Patient is symptomatic.
Dofetilide started. Needs daily EKGs
Chest discomfort-troponin is negative likely secondary to symptomatic atrial fibrillation.
Patient had tried beta-blockers in the past and did not like the way it made her feel, she was developing headaches every day
Echo as above
Cardiology consulted and following
# History of VT
# Sick sinus syndrome with post maker placement in 40s
# Essential tremors
# Osteoporosis
# GERD-PPI
# DVT prophylaxis-Eliquis
# Full code
Discussed with nursing
Discussed with cardiology
Discussed with daughter at bedside
Part of this note was created using voice recognition system. Occasional wrong word or��sound alike� substitutions may have inadvertently occurred due to the inherent limitations of voice recognition software. If noted kindly bring it to my
attention for correction.
Anticipated Discharge: > 48 hours
Subjective/Interval History
-
Date of Service: March 06, 2025
Objective Data
-
Labs:
Laboratory Results
03/06/25
06:16
Sodium 142
Potassium 4.5
Chloride 108 H
Carbon Dioxide 26
BUN 15
Creatinine 0.6
Glucose 94
Calcium 9.5
Vital Signs:
Vital Signs
Temp Pulse Resp BP Pulse Ox
98.1 F 83 18 111/43 99
03/06/25 10:03 03/06/25 10:03 03/06/25 10:03 03/06/25 10:03 03/06/25 10:03
--- NOTE | 2025-03-06 11:38 | CM ---
Pricing on Dofetilide through the patients [employer] [facility], ID# [id number], is covered at $47 for a 30 day supply. CM to call and confirm availability at discharge. Patient will need a 3 day supply to go home.
--- NOTE | 2025-03-06 14:34 | CM ---
Chart reviewed. Patient is independent of ADLS, daughter at bedside, patient lives alone in a [address], 0 JHONATHAN, 0 DME. Plan is for the patient tor return home. CM to follow
[2025-03-06] MEDS: CARDIZEM CD 180 MG PO (15:11)
[2025-03-06] MEDS: MAALOX 30 ML PO (19:47)
[2025-03-06 20:49] LABS: Blood Urea Nitrogen 15 mg/dl (7-17); Calcium 9.9 mg/dl (8.4-10.2); Carbon Dioxide 24 mmol/L (22-30); Chloride 104 mmol/L (98-107); Estimated Creatinine Clearance 64 ml/min; Glucose 123 mg/dl (70-99); Potassium 4.4 mmol/L (3.5-5.1); Sodium 137 mmol/L (135-145); eGFR > 60.00
[2025-03-07] VITALS (7 sets, daily range): BP systolic 112–129; BP diastolic 66–102
--- NOTE | 2025-03-07 | PTCARENOTE ---
Received pt at change of shift OOB in chair. HR 70's-90's. Pt ambulating in hallway and reported chest pressure and tightness in lower sternum area. EKG obtained showing SR with PVC's. While removing EKG leads, pt rhythm changed, additional EKG
obtained and showed Afib/flutter with HR of 90's-115's. Pt belching and PRN Maalox administered--see NOV. PHYSICIAN INTENSIVIST on floor and made aware of episode and orders for labs obtained. Dr. Farris made aware, as well, and Tikosyn doses changed to 2000 and
0800. Tikosyn dose #2 administered per order. Instructed pt to call RN if pressure/tightness increases. Call garcia within reach.
@ approx 2230 Pt verbalizes the chest pressure and tightness has subsided.
--- NOTE | 2025-03-07 06:04 | PTCARENOTE ---
EKG obtained 2hrs post Tikosyn dose and QTc of 504. Dr. Farris made aware. Instructed RN to obtain EKG pre Tikosyn dose #3.
--- NOTE | 2025-03-07 08:14 | W.PN.CD ---
Today's Communication / Plan
-
- Continue Tikosyn but decrease the dose to 250 mcg every 12 hours.
- Discontinue diltiazem and start metoprolol.
Impression / Plan
-
74-year-old woman with a history of a pacemaker who had a previous history of A-fib noted on device checks and has been maintained on Eliquis but more recently has developed recurrent symptomatic atrial fibrillation. She had presented to the ER in
03/03/2025 with chest discomfort and was noted to have A-fib with RVR given IV Cardizem spontaneously converted back to sinus rhythm and then discharged she presented to the office yesterday with ongoing chest discomfort and also was noted to have
A-fib with RVR. Despite ongoing chest discomfort for hours troponins have remained negative. Patient placed on IV Cardizem with additional rate control.
.
Atrial fibrillation with RVR
- [id number] 2 (female and age greater than 65)
- Continue anticoagulation with Eliquis
- Highly symptomatic atrial fibrillation with recurrence including atrial fibrillation/atrial flutter.
- Patient case was reviewed in detail and started patient on Tikosyn on 03/06/2025
- Patient's EKG shows acceptable QTc. However QTc has increased
- Will decrease Tikosyn dose from 500 to 50 mcg every 12.
- TSH with reflex T4-added on in the labs
- Patient has gone into atrial flutter on 03/06/2025, after 2 doses of Tikosyn.
- This a.m., patient is in atrial fibrillation.
- With atrial flutters, we discussed that diltiazem may not be the best drug for her especially with Tikosyn on board. Patient was reluctant with beta-blockers in the past but is willing to try now. We will switch diltiazem to metoprolol and
increase dose as tolerated.
.
Chest discomfort.
- Negative troponins. I suspect that the chest discomfort is just related to atrial fibrillation.
- After additional rhythm management plan for outpatient Lexiscan stress in this patient with you as a pacemaker
- Related to onset of atrial fibrillation/flutters. Patient's flutters are more symptomatic for her. Patient starts having chest pains with every flutter and atrial fibrillation is better tolerated without the chest pain.
.
Pacemaker Stable
Physical Exam
Vital Signs/Labs
Vital Signs
Temp Pulse Resp BP Pulse Ox
98.5 F 62 16 112/76 98
03/07/25 04:11 03/07/25 06:00 03/07/25 04:11 03/07/25 04:11 03/07/25 04:11
03/06/25 03/07/25 03/08/25
06:59 06:59 06:59
Actual Weight 72.688 kg
03/05/25 17:07
03/06/25 20:15
Magnesium 2.0 mg/dl (1.6-2.3) 03/06/25 20:15
Triglycerides 73 mg/dl (10-149) 03/06/25 06:16
LDL Cholesterol, Calc 101 mg/dl 03/06/25 06:16
VLDL Cholesterol, Calc 14 mg/dl (0-30) 03/06/25 06:16
HDL Cholesterol 52 mg/dl 03/06/25 06:16
LAB Results
03/05/25 03/06/25
17:07 06:16
Troponin I < 0.012 < 0.012
Physical Exam
Constitutional: No acute distress and Comfortable
EENT: Anicteric and Moist mucous membranes
Cardiovascular: Pedal edema is absent, JVD pressure is normal and Rhythm/rate is irregular
Respiratory: Respiratory effort normal, Wheeze Absent and Crackles Absent
GI: Soft, Normal bowel sounds and Distention present
Neuro/Psych: Alert, Oriented, AO x 3 and Motor deficits absent
Data Reviewed
-
Date of Service: March 07, 2025
Medical Decision Making: Reviewed Test Results, Test Interpretation and Review of Case with other Provider
EKG: Tracing Personally Visualized and interpreted
Echo: Report Reviewed by me
Labs: Labs Reviewed by me
Old Records: Reviewed
[2025-03-07] MEDS: TIKOSYN PO (08:26)
[2025-03-07] MEDS: CARDIZEM CD PO (08:32)
[2025-03-07] MEDS: VITAMIN B-12 1000 MCG PO (09:07)
[2025-03-07] MEDS: ELIQUIS 5 MG PO ×2 (09:07→20:51)
--- NOTE | 2025-03-07 09:08 | W.PN.HOSP.TC ---
Today's Communication/Plan
-
On dofetilide load
Assessment / Plan
Assessment / Plan
74-year-old woman with a history of A-fib on Eliquis presented with chest discomfort on 03/03/2025. She converted to sinus rhythm after Cardizem and was discharged.. She was found to be in A-fib when seen in the office and was sent to ER.
Patient awake alert
Cardiovascular system S1-S2 appreciated
Chest clear to auscultation
Abdomen soft and nontender
No pedal edema
Echo 03/06/2025-normal biventricular size and systolic function. Pacer wires in the RV. Mild MR. Moderate TR. Pulmonary artery pressure 29 mmHg. No change since 2022
# Atrial fibrillation with RVR
Converted to sinus rhythm, but back and forth.
Continue Eliquis
Patient is symptomatic with Afib.
Dofetilide started. Needs daily EKGs
Chest discomfort-troponin is negative likely secondary to symptomatic atrial fibrillation.
Patient had tried beta-blockers in the past and did not like the way it made her feel, she was developing headaches every day
Echo as above
Cardiology following
# History of VT
# Sick sinus syndrome with post maker placement in 40s
# Essential tremors
# Osteoporosis
# GERD-PPI
# DVT prophylaxis-Eliquis
# Full code
Discussed with nursing
Part of this note was created using voice recognition system. Occasional wrong word or��sound alike� substitutions may have inadvertently occurred due to the inherent limitations of voice recognition software. If noted kindly bring it to my
attention for correction.
Anticipated Discharge: > 48 hours
Subjective/Interval History
-
Date of Service: March 07, 2025
Objective Data
-
Vital Signs:
Vital Signs
Temp Pulse Resp BP Pulse Ox
97.9 F 62 20 112/76 97
03/07/25 07:00 03/07/25 06:00 03/07/25 07:00 03/07/25 04:11 03/07/25 07:00
I&O
03/06/25 03/07/25 03/08/25
06:59 06:59 06:59
Intake Total 1080 / 1080
Balance 1080 / 1080
[2025-03-07] MEDS: TIKOSYN 250 MCG PO ×2 (09:52→20:51)
[2025-03-07] MEDS: MAALOX 30 ML PO (09:58)
--- NOTE | 2025-03-07 10:14 | PTCARENOTE ---
Patient walking in the hallway, HR was in A-fib/flutter developed 4 out 10 chest pressure, sat down rest in chair now 2 out 10, HR 70-80's NSR. Eduardo Mitchell given
--- NOTE | 2025-03-07 10:37 | PTCARENOTE ---
Chest pressure subsided HR 74, NSR
[2025-03-07 11:30] LABS: TSH Reflex To Free T4 2.86 uIU/ml (0.47-4.68)
--- NOTE | 2025-03-07 11:41 | CM ---
Chart reviewed. Patient's dose decreased to 250mcq and patient is currently in NSR. Patient is independent of ADLS, lives alone, 3 [address], 0 JHONATHAN, 0 DME. CM to followup with dosage of Dofetilide at discharge to assess availability. Patient will
need a 3 day supply at discharge. CM to follow
--- NOTE | 2025-03-07 18:26 | PTCARENOTE ---
Patient in chair comfortable, talking on her phone. NSR HR 80's, call garcia in reach
[2025-03-07] MEDS: TOPROL XL 25 MG PO (20:52)
--- NOTE | 2025-03-07 23:23 | PTCARENOTE ---
Received patient at change of shift. SR on the monitor, HR in the 70s. Pt ambulating in the hallway. QTC after dose 4: 482. No complaints from pt at this time, call garcia within reach.
[2025-03-08 02:10] VITALS: BP 130/59
[2025-03-08 03:07] LABS: Blood Urea Nitrogen 16 mg/dl (7-17); Calcium 9.5 mg/dl (8.4-10.2); Carbon Dioxide 24 mmol/L (22-30); Chloride 108 mmol/L (98-107); Estimated Creatinine Clearance 85 ml/min; Glucose 96 mg/dl (70-99); Magnesium 2.2 mg/dl (1.6-2.3); Potassium 4.4 mmol/L (3.5-5.1); Sodium 140 mmol/L (135-145); eGFR > 60.00
[2025-03-08 07:03] VITALS: BP 109/56
[2025-03-08] MEDS: TIKOSYN 250 MCG PO (07:58)
[2025-03-08] MEDS: VITAMIN B-12 1000 MCG PO (07:58)
[2025-03-08] MEDS: ELIQUIS 5 MG PO (07:58)
[2025-03-08] MEDS: PROTONIX 40 MG PO (07:58)
[2025-03-08] MEDS: TOPROL XL 25 MG PO (07:59)
--- NOTE | 2025-03-08 08:48 | PTCARENOTE ---
Assumed care. Patient up in chair, walking in room. Denies pain or shortness of breath. NSR HR 75, CHANGE MANAGEMENT ANALYST 109/56, call garcia in reach
[2025-03-08] MEDS: MAALOX 30 ML PO (10:12)
--- NOTE | 2025-03-08 10:15 | CM ---
Dofetilide 250mcq 60 tablets is currently in stock at patients [facility]
--- NOTE | 2025-03-08 10:45 | W.PN.CD ---
Today's Communication / Plan
-
- Stable for discharge from cardiac stand point
- EP visit for ablation consult in 2 weeks
- Discharge Tikosyn 250 mcg BID
- Discharge Metoporlol XL 25 mg BID
- Eliquis 5 mg BID.
Impression / Plan
-
74-year-old woman with a history of a pacemaker who had a previous history of A-fib noted on device checks and has been maintained on Eliquis but more recently has developed recurrent symptomatic atrial fibrillation. She had presented to the ER in
03/03/2025 with chest discomfort and was noted to have A-fib with RVR given IV Cardizem spontaneously converted back to sinus rhythm and then discharged she presented to the office yesterday with ongoing chest discomfort and also was noted to have
A-fib with RVR. Despite ongoing chest discomfort for hours troponins have remained negative. Patient placed on IV Cardizem with additional rate control.
.
Atrial fibrillation with RVR
- Sinus rhythm now. AF to sinus on 03/07/25
- [id number] 2 (female and age greater than 65)
- Continue anticoagulation with Eliquis
- Highly symptomatic atrial fibrillation with recurrence including atrial fibrillation/atrial flutter.
- Patient case was reviewed in detail and started patient on Tikosyn on 03/06/2025
- Patient's EKG shows acceptable QTc. However QTc has increased
- Discharge dose of Tikosyn 250 mcg every 12 hr.
- TSH 2.86 - normal.
- Tolerating Metoprolol now. Discharge home on Metoprolol 25 mg BID.
.
Chest discomfort.
- Negative troponins. I suspect that the chest discomfort is just related to atrial fibrillation.
- After additional rhythm management plan for outpatient Lexiscan stress in this patient with you as a pacemaker
- Related to onset of atrial fibrillation/flutters. Patient's flutters are more symptomatic for her. Patient starts having chest pains with every flutter and atrial fibrillation is better tolerated without the chest pain.
.
Pacemaker Stable
- VIP mode - 60 bpm.
Physical Exam
Vital Signs/Labs
Vital Signs
Temp Pulse Resp BP Pulse Ox
97.8 F 72 20 109/56 99
03/08/25 07:03 03/08/25 07:59 03/08/25 07:03 03/08/25 07:59 03/08/25 07:03
03/05/25 17:07
03/08/25 02:16
Magnesium 2.2 mg/dl (1.6-2.3) 03/08/25 02:16
Triglycerides 73 mg/dl (10-149) 03/06/25 06:16
LDL Cholesterol, Calc 101 mg/dl 03/06/25 06:16
VLDL Cholesterol, Calc 14 mg/dl (0-30) 03/06/25 06:16
HDL Cholesterol 52 mg/dl 03/06/25 06:16
LAB Results
03/05/25 03/06/25
17:07 06:16
Troponin I < 0.012 < 0.012
Physical Exam
Constitutional: No acute distress and Comfortable
EENT: Anicteric and Moist mucous membranes
Cardiovascular: Rhythm & rate is regular, Pedal edema is absent and JVD pressure is normal
Respiratory: Respiratory effort normal and Lungs clear to auscul.
GI: Soft, Distention absent, Non tender and Normal bowel sounds
Neuro/Psych: Alert, Oriented, AO x 3 and Motor deficits absent
Other: Cardiac Device Site
Data Reviewed
-
Date of Service: March 08, 2025
Medical Decision Making: Reviewed Test Results, Test Interpretation and Review of Case with other Provider
EKG: Tracing Personally Visualized and interpreted
Echo: Report Reviewed by me
Labs: Labs Reviewed by me
Old Records: Reviewed
--- NOTE | 2025-03-08 11:14 | W.PN.HOSP.TC ---
Today's Communication/Plan
-
dc
Assessment / Plan
Assessment / Plan
74yo F with PMHX of Afib, HLD, GERD, chronic cough came with chest pain, found Afib with RVR that converted to SR with Tykosin. Remained in controlled SR for 24h before d/c. 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 Advised
to follow up as outpatient for stress test. Medically stable for d/c
A/P:
#A.fib with RVR, paroxysmal
#Chest pain
#SSS s/p PPM
#Hx of VT
cont Eliquis
Cont rate and rythm control as per cariology
Trop WNL
TSH WNL
Echo: no change since 2022
#Essential tremors
#HLD
#GERD
cont home meds
#chronic cough
Chest XR without acute pulmonary process
suspect GERD-induced
DVT ppx Eliquis
Full code
I have spent at least 38min reviewing chart, test results, communication with consultantants and providing direct patient care
Anticipated Discharge: Today
Subjective/Interval History
-
Date of Service: March 08, 2025
Objective Data
-
Labs:
Laboratory Results
03/08/25
02:16
Sodium 140
Potassium 4.4
Chloride 108 H
Carbon Dioxide 24
BUN 16
Creatinine 0.6
Glucose 96
Calcium 9.5
Vital Signs:
Vital Signs
Temp Pulse Resp BP Pulse Ox
97.8 F 72 20 109/56 99
03/08/25 07:03 03/08/25 07:59 03/08/25 07:03 03/08/25 07:59 03/08/25 07:03
I&O
03/07/25 03/08/25 03/09/25
06:59 06:59 06:59
Intake Total 1080 / 1080 480 / 480
Balance 1080 / 1080 480 / 480
Review of Systems
-
History Source: Patient
All other systems: Reviewed and negative
Physical Exam
-
General: No Apparent Distress
HEENT: Normocephalic
Respiratory: Clear to Auscultation
Cardiac: Regular Rhythm
GI: Soft, Nontender and Nondistended
Skin: Warm; Negative Rash or Ulcers
Neuro: Awake, Alert, Oriented and AO x 3
Psych: Calm
--- NOTE | 2025-03-08 11:18 | W.DCSUMMARY ---
Discharge Summary
Discharge Data
Date of Admission: 03/06/25
Date of Discharge: 03/08/25
-
Pending Results: No
Hospital Course
74yo F with PMHX of Afib, HLD, GERD, chronic cough came with chest pain, found Afib with RVR that converted to SR with Tykosin. Remained in controlled SR for 24h before d/c. 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 Advised
to follow up as outpatient for stress test. Medcially stable for d/c
I have spent at least 38min reviewing chart, test results, communication with consultantants and providing direct patient care
Patient was managed for:
#A.fib with RVR, paroxysmal
#Chest pain
#SSS s/p PPM
#Hx of VT
#Osteoarthritis
#Essential tremors
#HLD
#GERD
#chronic cough
Discharge Plan
-
Patient Disposition: Home (Routine Discharge)
Discharge Diagnosis/Procedures: A.fib
Diet: Low Cholesterol
Referrals:
Felisha Farris MD [Active, Cardiology] - in one to two weeks
Haleigh Hedrick MD [Family Provider, Family Practice]
Prescriptions:
New
dofetilide 250 mcg Capsule
250 mcg PO Q12 Qty: 60 0RF
metoprolol succinate 25 mg Tablet Extended Release 24 Hr
25 mg PO BID Qty: 60 0RF
Continued
Fiber Select Gummies 1 EACH tablet,chewable
2 tab PO DAILY
multivitamin 1 EACH tablet
1 ea PO BID
esomeprazole magnesium [Nexium] 20 MG capsule,delayed release(DR/EC)
20 mg PO Q48H
glucosamine-chondroitin 250-200 mg Tablet
1 tab PO BID Qty: 0
calcium-vitamin D3-vitamin K [Citracal-D3 Soft Chew] 1 EACH tablet,chewable
1 ea PO BID
Eliquis 5 MG tablet
5 mg PO BID Qty: 1 0RF
cyanocobalamin (vitamin B-12) 1,000 mcg Tablet
1,000 mcg PO DAILY
acetaminophen [Tylenol Extra Strength] 500 mg Tablet
1,000 mg PO QIDPRN PRN (Reason: MILD PAIN)
Discontinued
ascorbic acid (vitamin C) [Vitamin C] 500 MG tablet
1,000 mg PO QPM
Discharge Orders:
Discharge Patient (As Directed); Ordered 03/08/25
Ordered By: Jeremy Witt
Care Plan Goals
Care Plan Goals:
Problem: Readiness for enhanced knowledge related to diagnosis and treatment plan
Goal: Understand your diagnosis and treatment plan needs, including medications if applicable.
Instructions: Know your diagnosis, underlying causes and treatment plan options, including medications if applicable. Consult with your health care team to learn about your diagnosis and treatment plan, including medications if applicable.
Discharge Date and Time
Print Language: MALTESE
[2025-03-08 11:29] VITALS: BP 102/56
[2025-03-08 13:52] VITALS: BP 123/62
--- NOTE | 2025-03-08 13:58 | PTCARENOTE ---
Discharge teaching completed. Patient verbalized understanding. IV and telemetry removed.
--- NOTE | 2025-03-08 14:12 | PTCARENOTE ---
Patient escorted to her car for discharge
== END 2025-03-08 14:17 | disposition home or self-care (01) | DRG 310 ==
LOC: IVU 11:06
PROVIDERS: Emergency Medicine; Hospitalist; Internal Medicine Cardiovascular Disease; ADMITTING PHYSICIAN Internal Medicine; ATTENDING PHYSICIAN Internal Medicine; EMERGENCY PHYSICIAN Emergency Medicine; FAMILY PHYSICIAN Family Medicine; OTHER PHYSICIAN Internal Medicine Cardiovascular Disease
DX: I48.0 Paroxysmal atrial fibrillation (principal); I47.20 Ventricular tachycardia, unspecified; I48.92 Unspecified atrial flutter; M19.90 Unspecified osteoarthritis, unspecified site; G25.0 Essential tremor; E78.5 Hyperlipidemia, unspecified; K21.9 Gastro-esophageal reflux disease without esophagitis; R05.3 Chronic cough; Z79.01 Long term (current) use of anticoagulants; Z79.899 Other long term (current) drug therapy; Z95.0 Presence of cardiac pacemaker
CPT/HCPCS: 71045; 80048; 80053; 80061; 83036; 83735; 84443; 84484; 85025; 93005; 93306; 96361; 96374; 99285; 99291

== ENCOUNTER → 2025-03-14 16:13 | Outpatient (REF) | payer MEDICARE, OTHER, SELFPAY | LOC: RAD 16:13 | PROVIDERS: ATTENDING PHYSICIAN Family Medicine | DX: M54.6 Pain in thoracic spine (principal); S22.080S Wedge compression fracture of T11-T12 vertebra, sequela | CPT/HCPCS: 72072 ==

== ENCOUNTER → 2025-04-26 09:19 | Outpatient (REF) | payer MEDICARE, OTHER, SELFPAY ==
[2025-04-26 10:35] LABS: Hematocrit 44.9 % (37.0-47.0); Hemoglobin 15.6 g/dL (12.0-16.0); Mean Corp Hgb Conc. 34.7 g/dL (33.0-37.0); Mean Corpuscular Volume 86.7 fL (81.0-99.0); Nucleated Red Blood Cells % 0 %; Platelet Count 235 10^3/uL (130-400); Red Cell Dist. Width 12.3 % (11.5-14.5)
[2025-04-26 11:17] LABS: ALT (SGPT) 19 U/L (0-35); AST (SGOT) 25 U/L (14-36); Albumin 4.8 g/dl (3.5-5.0); Alkaline Phosphatase 51 U/L (38-126); Blood Urea Nitrogen 17 mg/dl (7-17); Calcium 9.8 mg/dl (8.4-10.2); Carbon Dioxide 27 mmol/L (22-30); Chloride 105 mmol/L (98-107); Glucose 87 mg/dl (70-99); Potassium 4.8 mmol/L (3.5-5.1); Sodium 139 mmol/L (135-145); Total Protein 7.5 g/dl (6.3-8.2); eGFR > 60.00
== END ==
LOC: SDSPAT 09:19
PROVIDERS: ATTENDING PHYSICIAN Internal Medicine Cardiovascular Disease; FAMILY PHYSICIAN Family Medicine; OTHER PHYSICIAN Internal Medicine Cardiovascular Disease
DX: I48.0 Paroxysmal atrial fibrillation (principal)
CPT/HCPCS: 36415; 80053; 85025; 86850; 86900; 86901; 93005

== ENCOUNTER 2025-05-08 07:38 | Day surgery (SDC) | payer MEDICARE, OTHER, SELFPAY ==
[2025-04-26 09:31] VITALS: BMI 25.4
[2025-05-08] VITALS (11 sets, daily range): BP systolic 93–140; BP diastolic 51–68; BMI 25.1
[2025-05-08 11:45] LABS: ACT-LR - POC 318 Seconds (116-155)
[2025-05-08 12:05] LABS: ACT-LR - POC 305 Seconds (116-155)
--- NOTE | 2025-05-08 12:30 | ITS.CL.ABL ---
Career Development Manager - Ablation
Ablation
Procedure Report:
AFIB / A flutter ablation:
Ms. Fenton is a very pleasant 74 yr old woman with medical history significant for symptomatic paroxysmal atrial fibrillation and atrial flutter is here in the EP lab for atrial fibrillation / flutter ablation
Date of Procedure:
05/08/2025
Indications:
Symptomatic paroxysmal atrial fibrillation / atrial flutter
Pre-Operative Diagnosis:
Paroxysmal atrial fibrillation / atrial flutter
Post-Operative Diagnosis:
Paroxysmal atrial fibrillation / atrial flutter
Procedure Performed:
Atrial fibrillation ablation with wide area circumferential ablation (WACA) approach for pulmonary vein isolation
Atrial flutter ablation with cavo-tricuspid isthmus line block formation
Performing Physician:
Felisha Farris MD
Assistants:
EP staff
Anesthesia:
See anesthesia records
Detailed Description of the Procedure:
Written informed consent was obtained from the patient after a full explanation of the risks and benefits of the procedure including the risks of sedation and anesthesia.
The patient was brought to the electrophysiology laboratory in stable condition in fasting state. Continuous electrocardiographic and hemodynamic monitoring was initiated.
The initial rhythm was sinus rhythm.
The procedure site was meticulously prepared with surgical scrub and allowed to dry with no pooling. Sterile draping was applied to cover the procedure site. The image intensifier was draped with sterile bag and positioned over the patient. After
infusion of local anesthetic, vascular access was obtained under ultrasound guidance and sheaths were placed over guide wire as detailed below.
The images of the ultrasound of the femoral vessels were stored in patient chart.
Sheath and Catheter Placement:
The following catheters / sheaths were placed
Sheaths:
��������� Agilis sheath in right femoral vein upgraded from 8Fr in right femoral vein
��������� 10Fr in left femoral vein
��������� 9Fr in right femoral vein
Catheters:
��������� The Affera Sphere 9 catheter -bidirectional D/F� - at locations of HRA, RV, LA and LV.
��������� ICE catheter -AccuNav -� at locations of RA, SVC, and RV.
��������� Bard decapolar catheter � RA and CS
Heparin was initiated after the access was obtained.
Intracardiac ECHO:
An 8-Zimbabwean AcuNav intracardiac ECHO (ICE) probe was advanced through the 9-Zimbabwean sheath in the left femoral vein into the right atrium under fluoroscopic and ICE ultrasound image guidance and a baseline ECHO study was performed. The left atrial
size was dilated. There was trace tricuspid regurgitation. The aortic valve was grossly normal. There was normal left ventricular size and function. There is no pericardial effusion. The GUILLERMO has baseline normal velocities. The pulmonary had good
flow identified.
There was a large Eustachian ridge noted.
During the procedure, ICE was used for monitoring of complications, guidance of trans-septal puncture, monitor the catheter position and tracking ablation lesions. No change in the pericardial space noted throughout the procedure.
Electroanatomic mapping of the right atrium:
A J-tipped guidewire was advanced through the 8-Zimbabwean sheath in the right femoral vein into the superior vena cava under fluoroscopic and ICE guidance. The 8-Zimbabwean sheath was exchanged for an Agilis sheath which was advanced into the superior vena
cava.
Using the Sphere 9 Affera catheter advanced through Agilis sheath into the right atrium, an electroanatomic map (EAM) of the right atrium was created using the [employer]� mapping system with EBOOKAPLACE-1 software mapping system.
There was borderline long HV conduction noted at baseline at 45 ms.
Ablation # 1: Typical Atrial Flutter Ablation:
The CTI ablation was done using radiofrequency with Affera sphere -9 ablation, open irrigation, ablation catheter in the cavotricuspid isthmus from the tricuspid annulus to the IVC ridge. �
Once the ablation catheter reach near the IVC, the ablation energy was changed to pulsefield.
��������������� -Bidirectional block was confirmed across the CTI line with differential pacing.
��������������� -Double potentials were spaced greater than 98 msec apart.
��������������� -The conduction time across the CTI line from proximal CS pacing was 160 msec.
��������������� -EAM of the right atrium was obtained with coronary sinus pacing and showed a line of block at the CTI.
��������������� -The time interval just lateral to the ablation lesions was 158 msec and the lateral wall was 112 msec
��������������� - All these maneuvers confirmed the block at the CTI line.
- Post ablation HV interval was unchanged at 45msec
Then attention was given to atrial fibrillation ablation.
Trans-septal Puncture:
Heparin was initiated and infused to maintain appropriate ACT. A J-tipped guidewire was advanced through into the superior vena cava under fluoroscopic and ICE guidance. The Agilis sheath was advanced into the superior vena cava. An AcQCross
transseptal access system was utilized to perform the trans-septal puncture. The apparatus was withdrawn until it was in contact with the fossa ovalis. The position was adjusted based on fluoroscopy and ultrasound images from ICE. Under
fluoroscopic, hemodynamic and ICE ultrasound guidance, left atrium was cannulated by advancing the needle. Once atrial septum was cannulated, the needle was pulled back and the guide wire was advanced through the needle into the left atrium. The
guide wire was advanced into the left superior pulmonary vein. Both the sheath and the dilator was advanced into the left atrium. The dilator with the needle was withdrawn. Blood was aspirated from the Agilis sheath and arterial blood confirmed. The
sheath was flushed. Saline injection noted into the left atrium on ICE. The waveform of the LA pressure was recorded. The mapping catheter was advanced in the Agilis sheath into the left pulmonary vein.
3D Electroanatomic Mapping:
Using the Sphere 9 Affera catheter advanced through Agilis sheath into the left atrium, an electroanatomic map (EAM) of the left atrium was created using [employer]� mapping system with EBOOKAPLACE-1 software. The map was used for localization of catheter
position and tacking of ablation lesions. The EAM of the left atrium showed a total of 4 PVs with two left and the two right sided pulmonary veins with all electrically connected to the body the LA. It showed no significant scar on the posterior
wall of the LA. The LA was dilated in size.
Following the EAM, preparation were made for ablation.
Ablation:
Ablation # 2: Pulmonary vein Isolation:
Pulsed field ablation was performed using an open irrigation, bidirectional, contact sensing, dual energy ablation catheter (Affera sphere -9) by completing the circumferential lesions around the left and right pulmonary veins achieving pulmonary
vein isolation.
Confirmation of the PVI and bidirectional block:
Following achievement of entrance block at the pulmonary veins, pacing from the Sphere 9 affera catheter in each of the four veins at 20 milliamps for 4 milliseconds showed entrance and exit block.
The LA was mapped with The [employer]� mapping system with [place] [employer] software in sinus rhythm confirming the line of block at the ablation lesions lines.
�
EP study:
Sinus Node Function: The sinus node functions are within acceptable normal range.
Atrioventricular George Function: �Post ablation HV interval was unchanged at 45 msec
Procedure End
ICE study was done again that showed no epicardial accumulation. No complications noted.
Following the completion of the EP study, catheters were removed. Protamine 40 mg was given at the end of the procedure and ACT was checked repeatedly. The sheaths were removed and hemostasis achieved with Figure of 8 suture and manual compression
after acceptable ACT is achieved.
Left atrial Pressure:
Pre-Procedure: Mean LA pressure was 4mmHg
Post-Procedure: Mean LA pressure was 6mmHg.
Post-Procedure: Mean RA pressure was 3mmHg
Estimated Blood loss:
<10 cc
Specimens Removed:
None.
Implants / Devices:
None
Urine output:
None
Packs / Drains/ Tubes:
None
Instrument / Sponge Count Correct:
Yes
Complications of the Procedure:
None
Condition of Patient at Time of Transfer:
Hemodynamically stable with no neurological or vascular compromise.
Summary:
��������� Successful atrial fibrillation ablation with circumferential bidirectional line of block at pulmonary venin antra (Pulmonary vein isolation), atrial flutter ablation with cavo-tricuspid isthmus line block formation.
Figures from the Procedure:
Figure 1: The electroanatomic mapping (EAM) of the left atrium with bipolar voltage (purple indicates normal electrical activity with red as no myocardial muscle electric activity indicating a line of block or scar.
[2025-05-08] MEDS: ANESTHETIC LOZENGE 1 LOZENGE PO (12:36)
--- NOTE | 2025-05-08 16:22 | W.PN.UPDATE ---
Update Note
Progress Note Update
Pt seen post PFA and AFlutter CTI RFA. Right groin site without ht/bleeding, non tender. OOB ambulating. Post EKG NSR 65, no acute changes. Resume eliquis tonight, continue tikosyn, metoprolol as before. Followup at [facility] as scheduled. Home today if
groin site/tele remain stable.
== END 2025-05-08 17:00 | disposition home or self-care (01) ==
LOC: CATH 07:38
PROVIDERS: ATTENDING PHYSICIAN Internal Medicine Cardiovascular Disease; FAMILY PHYSICIAN Family Medicine; OTHER PHYSICIAN Internal Medicine Cardiovascular Disease
DX: I48.0 Paroxysmal atrial fibrillation (principal); I48.4 Atypical atrial flutter; I95.9 Hypotension, unspecified; E78.5 Hyperlipidemia, unspecified; I49.5 Sick sinus syndrome; M48.54XS Collapsed vertebra, not elsewhere classified, thoracic region, sequela of fracture; M85.80 Other specified disorders of bone density and structure, unspecified site; G25.0 Essential tremor; I47.20 Ventricular tachycardia, unspecified; K21.9 Gastro-esophageal reflux disease without esophagitis; Z90.49 Acquired absence of other specified parts of digestive tract; Z95.0 Presence of cardiac pacemaker; Z79.01 Long term (current) use of anticoagulants; Z79.899 Other long term (current) drug therapy
CPT/HCPCS: C1769; C1730; C1733; C1766; C1894; C1892; 85347; 86900; 86901; 93005; 93655; 93656

== ENCOUNTER → 2025-07-12 11:53 | Outpatient (REF) | payer MEDICARE, OTHER, SELFPAY | LOC: WDC 11:53 | PROVIDERS: ATTENDING PHYSICIAN Family Medicine | DX: Z12.31 Encounter for screening mammogram for malignant neoplasm of breast (principal) | CPT/HCPCS: 77063; 77067 ==